=== PATIENT | female | born 1945 | race Caucasian/White ===

== ENCOUNTER 2021-06-27 22:28 | Emergency (ER) | payer OTHER | END 2021-06-28 02:17 | disposition home or self-care (01) | LOC: FER 22:28 | DX: S03.02XA Dislocation of jaw, left side, initial encounter (principal); I12.0 Hypertensive chronic kidney disease with stage 5 chronic kidney disease or end stage renal disease; E11.22 Type 2 diabetes mellitus with diabetic chronic kidney disease; N18.6 End stage renal disease; J44.9 Chronic obstructive pulmonary disease, unspecified; F03.90 Unspecified dementia, unspecified severity, without behavioral disturbance, psychotic disturbance, mood disturbance, and anxiety; Z99.2 Dependence on renal dialysis; X58.XXXA Exposure to other specified factors, initial encounter; Y93.89 Activity, other specified; Y92.129 Unspecified place in nursing home as the place of occurrence of the external cause | CPT/HCPCS: 70486 ==